=== PATIENT | female | born 1995 | race Two or more races ===

== ENCOUNTER 2022-02-28 21:39 | Emergency (ER) | payer MEDICAID ==
[~2022-02-28] VITALS: Ht 165.1 cm; Wt 63.5 kg
[2022-02-28] MEDS ORDERED: IV NORMAL SALINE 1000 ML BAG IV ONE (22:30)
[2022-02-28 22:39] LABS: *BILIRUBIN,URIN NEGATIVE (NEGATIVE); *BLOOD, URINE 2+ (NEGATIVE); *COLOR,URINE YELLOW (YELLOW); *KETONES,URINE 3+ (NEGATIVE); LEUKOCYTE ESTERASE ,URINE 3+ (NEGATIVE); NITRITE, URINE POSITIVE (NEGATIVE); UGLUCOSE NEGATIVE (NEGATIVE)
[2022-02-28 22:47] LABS: HEMATOCRIT 38.8 % (31.2-41.9); MEAN CORPUSCULAR HEMOGLOBIN 28.7 uug (24.7-32.8); MEAN CORPUSCULAR VOLUME 84.5 fL (75.5-95.3); PLATELET COUNT (AUTO) 420 K/uL (179-408)
[2022-02-28 22:51] LABS: *CLARITY,URINE HAZY (CLEAR)
[2022-02-28 22:59] LABS: ALANINE AMINOTRANSFERASE 21 U/L (14-59); ALKALINE PHOSPHATASE 74 U/L (50-136); ASPARTATE AMINOTRANSFERASE 8 U/L (15-37); BILIRUBIN,DIRECT 0.1 mg/dL (0.0-0.2); BILIRUBIN,TOTAL 0.5 mg/dL (0.2-1.0); CARBON DIOXIDE 24 mmol/L (21-32); CHLORIDE 101 mmol/L (98-107); CREATININE 0.7 mg/dL (0.6-1.3); GLUCOSE 111 mg/dL (74-106); LIPASE 31 U/L (73-393); POTASSIUM 3.9 mmol/L (3.5-5.1); TOTAL PROTEIN, SERUM 8.5 g/dL (6.4-8.2); UREA NITROGEN, BLOOD 10 mg/dL (7-18)
[2022-02-28] MEDS ORDERED: KETOROLAC TROMETHAMINE 30 MG INJ ONE (23:04)
[2022-02-28 23:05] LABS: BACTERIA,URINE MANY /HPF (NONE SEEN); SQUAMOUS EPITHELIAL CELL,UR MODERATE /HPF (NONE SEEN); WBC,URINE 80-100 /HPF (0-3)
[2022-02-28] MEDS ORDERED: ACETAMINOPHEN ES 500 MG TABLET PO ONE (23:30)
[2022-02-28] MEDS ORDERED: IV NS 1000 ML 1,000 ML IV ONE (23:30)
[2022-02-28] MEDS ORDERED: ONDANSETRON 4 MG/2 ML VIAL IV ONE (23:30)
[2022-02-28] MEDS ORDERED: CEFTRIAXONE 1 G in IV DEXTROSE 5% 50 ML IV ONE (23:30)
[2022-02-28] MEDS ORDERED: KETOROLAC TROMETHAMINE 30 MG INJ IVP ONE (23:30)
[2022-02-28] MEDS ORDERED: CEFTRIAXONE /D5W 50ML IVPB **ER PYXIS IV ONE (23:33)
[2022-02-28] MEDS ORDERED: ACETAMINOPHEN ES 500 MG TABLET ONE (23:33)
[2022-02-28] MEDS ORDERED: ONDANSETRON 4 MG/2 ML VIAL ONE (23:33)
[2022-03-01] MEDS ORDERED: ONDANSETRON 4 MG/2 ML VIAL ONE (02:18)
[2022-03-01] MEDS ORDERED: ONDANSETRON 4 MG/2 ML VIAL IV ONE (02:30)
[2022-03-01] MEDS ORDERED: ONDA4TAB11 PO (03:00)
[2022-03-01] MEDS ORDERED: IBUP-1955 PO (03:00)
[2022-03-01] MEDS ORDERED: CEPH250C PO (03:00)
[2022-03-01] MEDS ORDERED: NITR100C11 PO (03:00)
--- NOTE | 2022-03-01 03:11 | NUR ---
Patient discharged to home in stable condition. Written and verbal after care instructions given. Patient verbalizes understanding of instructions. Stressed follow up or return to ER for worsening s/s. pt ambulated with steady gait. denies pain .no SOB. no chest pain. AOx4
[2022-03-01 03:15] VITALS: BP 115/79
== END 2022-03-01 03:15 | disposition home or self-care (01) ==
LOC: ER 21:42
DX: N10 Acute pyelonephritis (principal); R55 Syncope and collapse; R00.0 Tachycardia, unspecified; R11.2 Nausea with vomiting, unspecified; D72.829 Elevated white blood cell count, unspecified; J45.909 Unspecified asthma, uncomplicated
CPT/HCPCS: 36415; 80048; 80076; 81001; 83690; 84702; 85025; 87077; 87086; 87186; 93005; 96361; 96365; 96374; 96375; 96376; 99285; J0696; J1885; J2405 ×2; J7040 ×2; A4663; A9150

== ENCOUNTER 2022-05-19 00:19 | Emergency (ER) | payer MEDICAID ==
[~2022-05-19] VITALS: Ht 157.5 cm; Wt 63.5 kg
[~2022-05-19 00:19] MED LIST: CEPH250C PO; IBUP-1955 PO; NITR100C11 PO; ONDA4TAB11 PO
[2022-05-19] MEDS ORDERED: ONDANSETRON ODT 4 MG TAB.RAPDIS SL ONE (02:30)
[2022-05-19] MEDS ORDERED: KETOROLAC TROMETHAMINE 60 MG INJ IM ONE ×2 (02:30→02:37)
[2022-05-19] MEDS ORDERED: ONDANSETRON ODT 4 MG TAB.RAPDIS ONE (02:36)
[2022-05-19] MEDS ORDERED: NAPR-1166 PO (03:55)
[2022-05-19 04:03] VITALS: BP 100/55
== END 2022-05-19 04:04 | disposition home or self-care (01) ==
LOC: ER 00:48
DX: R07.89 Other chest pain (principal); Z91.81 History of falling
CPT/HCPCS: 99283; 71101; 96372; J1885; A4663; Q0162